=== PATIENT | male | born 1935 | race Caucasian/White ===

== ENCOUNTER 2018-10-09 11:03 | Inpatient (IN) | payer MEDICARE, MEDICAID ==
--- NOTE | 2018-10-09 11:10 | EDM.PDOC ---
ED HPI GENERAL MEDICAL PROBLEM - General Chief Complaint: General Stated Complaint: hypoxia,fever Time Seen by Provider: 10/09/18 11:09 Source of Information: Reports: RN - History of Present Illness INITIAL COMMENTS - FREE TEXT/NARRATIVE: Patient is a 83-year-old gentleman who was sent to the ER from [facility] for evaluation of progressive shortness of breath for the last day cough and fever tachypneic and hypoxia this time we will evaluate him and treat Onset: Gradual Duration: Day(s):, Getting Worse Location: Reports: Chest Severity: Moderate Improves with: Reports: None Worsens with: Reports: Movement Associated Symptoms: Reports: Cough, Fever/Chills, Shortness of Breath, Weakness - Related Data Allergies Allergy/AdvReac Type Severity Reaction Status Date / Time No Known Allergies Allergy Verified 10/09/18 11:05 Home Meds: Home Meds Acetaminophen 1,000 mg PO BID 10/09/18 [History] Acetaminophen 1,000 mg PO Q6HR PRN 10/09/18 [History] Acetaminophen 500 mg PO Q6HR PRN 10/09/18 [History] Bisacodyl 10 mg PO DAILY PRN 10/09/18 [History] Bisacodyl [Dulcolax] 10 mg RC DAILY PRN 10/09/18 [History] Cholecalciferol (Vitamin D3) [Vitamin D3] 1,000 unit PO DAILY 10/09/18 [History] Cinnamon Bark [Cinnamon] 1,000 mg PO DAILY 10/09/18 [History] Clindamycin Phosphate 1 applic TP BID PRN 10/09/18 [History] Diclofenac Sodium [Voltaren 1%] 4 gm TOP TID PRN 10/09/18 [History] Fish Oil/Borage/Flax/Om3,6,9#1 [[place] 3-6-9 1,200 mg Softgel] 1,200 mg PO DAILY 10/09/18 [History] Glycopyrrolate [Robinul] 1 mg PO TID 10/09/18 [History] Hydrocortisone [Hydrocortisone 2.5% Crm] 1 applic TOP DAILY PRN 10/09/18 [ History] Mirtazapine [Remeron] 15 mg PO BEDTIME 10/09/18 [History] Na Phos,M-B/Na Phos,Di-Ba [Fleet Enema] 133 ml RC ASDIRECTED PRN 10/09/18 [ History] Sennosides/Docusate Sodium [Senna-S] 2 tab PO BID 10/09/18 [History] Tamsulosin HCl [Flomax] 0.4 mg PO BEDTIME 10/09/18 [History] guaiFENesin/Dextromethorphan [Guaifenesin Dm Syrup] 10 ml PO Q4HR PRN 10/09/18 [ History] ED ROS GENERAL - Review of Systems Review Of Systems: See Below Constitutional: Reports: Fever, Weakness HEENT: Reports: No Symptoms Respiratory: Reports: Shortness of Breath, Cough Cardiovascular: Reports: No Symptoms Endocrine: Reports: No Symptoms GI/Abdominal: Reports: No Symptoms : Reports: No Symptoms Musculoskeletal: Reports: No Symptoms Skin: Reports: No Symptoms Neurological: Reports: No Symptoms Psychiatric: Reports: No Symptoms Hematologic/Lymphatic: Reports: No Symptoms ED EXAM, GENERAL - Physical Exam Exam: See Below Exam Limited By: Altered Mental Status General Appearance: Lethargic, Mild Distress Ears: Normal External Exam, Normal Canal, Hearing Grossly Normal, Normal TMs Ear Exam: Bilateral Ear: Auricle Normal, Canal Normal, TM normal Nose: Normal Inspection, Normal Mucosa, No Blood Throat/Mouth: Normal Inspection, Normal Lips, Normal Teeth, Normal Gums, Normal Oropharynx, Normal Voice, No Airway Compromise Head: Atraumatic, Normocephalic Neck: Normal Inspection, Supple, Non-Tender, Full Range of Motion Respiratory/Chest: Respiratory Distress, Decreased Breath Sounds, Rales, Wheezing Cardiovascular: Regular Rate, Rhythm GI/Abdominal: Normal Bowel Sounds, Soft, Non-Tender, No Organomegaly, No Distention, No Abnormal Bruit, No Mass (Male) Exam: Deferred Rectal (Males) Exam: Deferred Back Exam: Decreased Range of Motion Extremities: Normal Inspection. No: Pedal Edema Neurological: CN II-XII Intact, Normal Reflexes, Confused Skin Exam: Warm, Dry, Intact, Normal Color, No Rash Lymphatic: No Adenopathy Course - Vital Signs Last Recorded V/S: Last Vital Signs Temp 98.0 F 10/10/18 08:00 Pulse 67 10/10/18 08:00 Resp 18 10/10/18 08:00 BP 86/51 L 10/10/18 08:00 Pulse Ox 100 10/10/18 08:00 - Orders/Labs/Meds Orders: Active Orders 24 hr Category Date Time Status Cardiac Monitoring [RC] . DIRECTED Care 10/09/18 11:17 Inactive EKG Documentation Completion [RC] ASDIRECTED Care 10/09/18 11:18 Active Pulse Oximetry [RC] .PRN Care 10/09/18 11:06 Active Chest 1V Frontal [CR] Stat Exams 10/09/18 11:06 Taken CULTURE BLOOD [BC] Stat Lab 10/09/18 11:10 Received CULTURE BLOOD [BC] Stat Lab 10/09/18 11:45 Received Sodium Chloride 0.9% [Saline Flush] Med 10/09/18 11:07 Active 10 ml FLUSH ASDIRECTED PRN Blood Culture x2 Reflex Set [OM.PC] Stat Oth 10/09/18 11:16 Ordered Saline Lock Insert [OM.PC] Stat Oth 10/09/18 11:07 Ordered Medication Orders Acetaminophen (Tylenol Extra Strength) 500 mg PO Q6HR PRN PRN Reason: pain Last Admin: 10/09/18 15:35 Dose: 500 mg Albuterol/Ipratropium (Duoneb 3.0-0.5 Mg/3 Ml) 3 ml NEB Q4H PRN PRN Reason: Dyspnea Last Admin: 10/10/18 08:08 Dose: 3 ml Bisacodyl (Dulcolax) 10 mg PO DAILY PRN PRN Reason: Constipation Bisacodyl (Dulcolax) 10 mg RECTAL DAILY PRN PRN Reason: Constipation Hydrocortisone (Proctozone-Hc 2.5% Crm) 0 gm TOP DAILY PRN PRN Reason: ITCHING Levofloxacin/Dextrose 500 mg/ (Premix) 100 mls @ 100 mls/hr IV Q24H [facility] Last Admin: 10/09/18 13:57 Dose: 100 mls/hr Piperacillin Sod/Tazobactam (Sod 3.375 gm/ Sodium Chloride) 100 mls @ 200 mls/ hr IV Q6H [facility] Last Admin: 10/10/18 06:04 Dose: 200 mls/hr Admin: 10/10/18 01:05 Dose: 200 mls/hr Admin: 10/09/18 18:19 Dose: 200 mls/hr Admin: 10/09/18 13:20 Dose: 200 mls/hr Ibuprofen (Motrin) 800 mg PO Q6H PRN PRN Reason: Fever Last Admin: 10/09/18 18:19 Dose: 800 mg Mirtazapine (Remeron) 15 mg PO BEDTIME [facility] Last Admin: 10/09/18 19:19 Dose: 15 mg Senna/Docusate Sodium (Senna Plus) 2 tab PO BID B[facility] Last Admin: 10/10/18 08:27 Dose: Admin: 10/09/18 18:19 Dose: 2 tab Sodium Chloride (Saline Flush) 10 ml FLUSH ASDIRECTED PRN PRN Reason: Keep Vein Open Last Admin: 10/10/18 06:07 Dose: 10 ml Admin: 10/10/18 06:05 Dose: 10 ml Admin: 10/10/18 01:08 Dose: 10 ml Admin: 10/10/18 01:05 Dose: 10 ml Admin: 10/09/18 18:19 Dose: 10 ml Admin: 10/09/18 13:57 Dose: 10 ml Admin: 10/09/18 13:20 Dose: 10 ml Tamsulosin HCl (Flomax) 0.4 mg PO BEDTIME [facility] Last Admin: 10/09/18 19:18 Dose: 0.4 mg Labs: Laboratory Tests 10/09/18 10/09/18 10/09/18 Range/Units 11:10 11:10 11:10 WBC 24.8 H (4.0-10.2) K/uL RBC 3.88 L (4.33-5.41) M/uL Hgb 12.6 L (13.1-16.8) g/dL Hct 36.7 L (39.0-49.0) % MCV 94.6 (84.0-98.0) fL MCH 32.5 (28.2-33.3) pg MCHC 34.3 (31.7-36.0) g/dL RDW 13.0 (11.2-14.1) % Plt Count 201 (150-350) K/uL Neut % (Auto) 93.4 H (45.0-80.0) % Lymph % (Auto) 2.2 L (10.0-50.0) % [place] % (Auto) 4.3 (2.0-14.0) % Eos % (Auto) 0.0 (0.0-5.0) % Baso % (Auto) 0.1 (0.0-2.0) % Neut # (Auto) 23.21 H (1.40-7.00) K/uL Lymph # (Auto) 0.54 (0.50-3.50) K/uL [place] # (Auto) 1.07 H (0.00-1.00) K/uL Eos # (Auto) 0.00 (0.00-0.50) K/uL Baso # (Auto) 0.02 (0.00-0.20) K/uL ABG pH (7.35-7.45) ABG pCO2 (35-45) mmHG ABG pO2 (80-105) mmHG ABG HCO3 (22-26) mmol/L ABG Total CO2 (23-27) mmol/L ABG O2 Saturation (95-98) % ABG Base Excess (-2-3) mmol/L O2 Delivery Device Sodium 140 (136-145) mmol/L Potassium 3.8 (3.5-5.1) mmol/L Chloride 102 (98-107) mmol/L Carbon Dioxide 28.6 (21.0-32.0) mmol/L BUN 19 H (7-18) mg/dL Creatinine 1.02 (0.51-1.17) mg/dL Est Cr Clr Drug Dosing 53.10 mL/min Estimated GFR (MDRD) > 60 mL/min Glucose 169 H (74-106) mg/dL Lactic Acid 1.8 (0.4-2.0) mmol/L Calcium 9.0 (8.5-10.1) mg/dL Total Bilirubin 1.5 H (0.2-1.0) mg/dL AST 14 L (15-37) U/L ALT 16 (12-78) U/L Alkaline Phosphatase 88 (46-116) IU/L Troponin I 0.004 (0.000-0.056) ng/mL NT-Pro-B Natriuret Pep 1221 H (0-125) pg/mL Total Protein 7.2 (6.4-8.2) g/dL Albumin 3.3 L (3.4-5.0) g/dL 10/09/18 Range/Units 11:40 WBC (4.0-10.2) K/uL RBC (4.33-5.41) M/uL Hgb (13.1-16.8) g/dL Hct (39.0-49.0) % MCV (84.0-98.0) fL MCH (28.2-33.3) pg MCHC (31.7-36.0) g/dL RDW (11.2-14.1) % Plt Count (150-350) K/uL Neut % (Auto) (45.0-80.0) % Lymph % (Auto) (10.0-50.0) % [place] % (Auto) (2.0-14.0) % Eos % (Auto) (0.0-5.0) % Baso % (Auto) (0.0-2.0) % Neut # (Auto) (1.40-7.00) K/uL Lymph # (Auto) (0.50-3.50) K/uL [place] # (Auto) (0.00-1.00) K/uL Eos # (Auto) (0.00-0.50) K/uL Baso # (Auto) (0.00-0.20) K/uL ABG pH 7.44 (7.35-7.45) ABG pCO2 41 (35-45) mmHG ABG pO2 103 (80-105) mmHG ABG HCO3 28.1 H (22-26) mmol/L ABG Total CO2 29 H (23-27) mmol/L ABG O2 Saturation 98 (95-98) % ABG Base Excess 4 H (-2-3) mmol/L O2 Delivery Device Nasal cannula Sodium (136-145) mmol/L Potassium (3.5-5.1) mmol/L Chloride (98-107) mmol/L Carbon Dioxide (21.0-32.0) mmol/L BUN (7-18) mg/dL Creatinine (0.51-1.17) mg/dL Est Cr Clr Drug Dosing mL/min Estimated GFR (MDRD) mL/min Glucose (74-106) mg/dL Lactic Acid (0.4-2.0) mmol/L Calcium (8.5-10.1) mg/dL Total Bilirubin (0.2-1.0) mg/dL AST (15-37) U/L ALT (12-78) U/L Alkaline Phosphatase (46-116) IU/L Troponin I (0.000-0.056) ng/mL NT-Pro-B Natriuret Pep (0-125) pg/mL Total Protein (6.4-8.2) g/dL Albumin (3.4-5.0) g/dL Meds: Medications Generic Name Dose Route Start Last Admin Trade Name Freq PRN Reason Stop Dose Admin Acetaminophen 500 mg 10/09/18 12:36 10/09/18 15:35 Tylenol Extra Strength PO 500 mg Q6HR PRN Administration pain Albuterol/Ipratropium 3 ml 10/09/18 12:26 10/10/18 08:08 Duoneb 3.0-0.5 Mg/3 Ml NEB 3 ml Q4H PRN Administration Dyspnea Bisacodyl 10 mg 10/09/18 12:36 Dulcolax PO DAILY PRN Constipation Bisacodyl 10 mg 10/09/18 12:36 Dulcolax RECTAL DAILY PRN Constipation Hydrocortisone 0 gm 10/09/18 13:00 Proctozone-Hc 2.5% Crm TOP DAILY PRN ITCHING Levofloxacin/Dextrose 500 mg/ 100 mls @ 100 mls/hr 10/09/18 14:00 10/09/18 13 :57 Premix IV 100 mls/hr Q24H [facility] Administration Piperacillin Sod/Tazobactam 100 mls @ 200 mls/hr 10/09/18 13:00 10/10/18 06: 04 Sod 3.375 gm/ Sodium Chloride IV 200 mls/hr Q6H [facility] Administration Ibuprofen 800 mg 10/09/18 17:30 10/09/18 18:19 Motrin PO 800 mg Q6H PRN Administration Fever Mirtazapine 15 mg 10/09/18 20:00 10/09/18 19:19 Remeron PO 15 mg BEDTIME [facility] Administration Senna/Docusate Sodium 2 tab 10/09/18 18:00 10/10/18 08:27 Senna Plus PO Not Given BID B[facility] Sodium Chloride 10 ml 10/09/18 11:07 10/10/18 06:07 Saline Flush FLUSH 10 ml ASDIRECTED PRN Administration Keep Vein Open Tamsulosin HCl 0.4 mg 10/09/18 20:00 10/09/18 19:18 Flomax PO 0.4 mg BEDTIME [facility] Administration Discontinued Medications Generic Name Dose Route Start Last Admin Trade Name Freq PRN Reason Stop Dose Admin Furosemide 40 mg 10/09/18 12:33 10/09/18 13:20 Lasix IVPUSH 10/09/18 12:34 40 mg DAILY ONE Administration Non-Formulary Medication 1 applic 10/09/18 12:36 Clindamycin Phosphate [Clindamycin Phosphate] TP BID PRN Rash Non-Formulary Medication 4 gm 10/09/18 12:36 Diclofenac Sodium [Voltaren 1% Gel] TOP TID PRN Pain Non-Formulary Medication 1,200 mg 10/10/18 08:00 Fish Oil/Borage/Flax/Om3,6,9#1 [[place] 3-6-9 1,200 Mg Softgel] PO DAILY [facility] Non-Formulary Medication 1 mg 10/09/18 18:00 Glycopyrrolate [Robinul] PO TID [facility] Non-Formulary Medication 133 ml 10/09/18 12:36 Na Phos,M-B/Na Phos,Di-Ba [Fleet Enema] RC ASDIRECTED PRN Other Departure - Departure Time of Disposition: 11:53 Disposition: Admitted As Inpatient 68 Condition: Poor Clinical Impression: Pneumonia - Discharge Information - Problem List & Annotations (1) Pneumonia SNOMED Code(s): 167855938 Code(s): J18.9 - PNEUMONIA, UNSPECIFIED ORGANISM Status: Acute Current Visit: Yes Qualifiers: Pneumonia type: due to unspecified organism Laterality: bilateral Lung location: lower lobe of lung Qualified Code(s): J18.1 - Lobar pneumonia, unspecified organism (2) Comfort measures only status SNOMED Code(s): 58001157990972 Code(s): Z51.5 - ENCOUNTER FOR PALLIATIVE CARE Status: Acute Current Visit: Yes (3) Fever and chills SNOMED Code(s): 896785623 Code(s): R50.9 - FEVER, UNSPECIFIED Status: Acute Current Visit: Yes (4) Shortness of breath SNOMED Code(s): 930536444 Code(s): R06.02 - SHORTNESS OF BREATH Status: Acute Current Visit: Yes - Problem List Review Problem List Initiated/Reviewed/Updated: Yes - My Orders Last 24 Hours: My Active Orders 10/09/18 11:06 Pulse Oximetry [RC] .PRN Chest 1V Frontal [CR] Stat 10/09/18 11:07 Sodium Chloride 0.9% [Saline Flush] 10 ml FLUSH ASDIRECTED PRN Saline Lock Insert [OM.PC] Stat 10/09/18 11:10 CULTURE BLOOD [BC] Stat 10/09/18 11:16 Blood Culture x2 Reflex Set [OM.PC] Stat 10/09/18 11:17 Cardiac Monitoring [RC] . DIRECTED 10/09/18 11:18 EKG Documentation Completion [RC] ASDIRECTED 10/09/18 11:45 CULTURE BLOOD [BC] Stat - Assessment/Plan Last 24 Hours: My Active Orders 10/09/18 11:06 Pulse Oximetry [RC] .PRN Chest 1V Frontal [CR] Stat 10/09/18 11:07 Sodium Chloride 0.9% [Saline Flush] 10 ml FLUSH ASDIRECTED PRN Saline Lock Insert [OM.PC] Stat 10/09/18 11:10 CULTURE BLOOD [BC] Stat 10/09/18 11:16 Blood Culture x2 Reflex Set [OM.PC] Stat 10/09/18 11:17 Cardiac Monitoring [RC] . DIRECTED 10/09/18 11:18 EKG Documentation Completion [RC] ASDIRECTED 10/09/18 11:45 CULTURE BLOOD [BC] Stat Plan: Patient is comfort care status. Will be started on antibiotics. This was discussed with daughter and she agreed. Later in the day, patients daughter came in and spoke with Dr. Julien about patients care. Patients daughter reconsidered status. Wished patient to be DNR/ DNI , but will continue antibiotic treatment for 2-3 days. If no improvement, antibiotic treatment will be discontinued.
[2018-10-09 11:36] LABS: CHLORIDE,CL 102 mmol/L (98-107); SODIUM,NA 140 mmol/L (136-145)
[2018-10-09 11:47] LABS: BASE EXCESS ARTERIAL 4 mmol/L (-2-3); BICARBONATE,ARTERIAL 28.1 mmol/L (22-26); O2 DELIVERY DEVICE NASAL CANNULA; O2 SATURATION ARTERIAL 98 % (95-98); PCO2 ARTERIAL 41 mmHG (35-45); PO2 ARTERIAL 103 mmHG (80-105)
[2018-10-09] MEDS ORDERED: Albuterol/Ipratropium 3.0-0.5 MG/3 ML Neb Soln NEB PRN (12:26)
[2018-10-09] MEDS ORDERED: Furosemide 40 MG/4 ML VIAL IVPUSH ONE (12:33)
[2018-10-09] MEDS ORDERED: Acetaminophen 500 MG Tab PO PRN (12:36)
[2018-10-09] MEDS ORDERED: NA PHOS DI BA RC PRN (12:36)
[2018-10-09] MEDS ORDERED: CLINDAMYCIN PHOSPHATE TP PRN (12:36)
[2018-10-09] MEDS ORDERED: Bisacodyl 10 MG Supp RECTAL PRN (12:36)
[2018-10-09] MEDS ORDERED: DICLOFENAC SODIUM TOP PRN (12:36)
[2018-10-09] MEDS ORDERED: Bisacodyl 5 MG Tab PO PRN (12:36)
[2018-10-09] MEDS ORDERED: NA PHOS M B RC PRN (12:36)
[2018-10-09] MEDS ORDERED: Hydrocortisone 2.5% Crm 30 GM Tube TOP PRN (13:00)
[2018-10-09] MEDS: Sodium Chloride 0.9% 10 ML Syringe FLUSH PRN ×3 (13:20→18:19)
[2018-10-09] MEDS: Piperacillin/Tazobactam 3.375 GM in Sodium Chloride 0.9% 100 ML IV SCH ×2 (13:20→18:19)
[2018-10-09] MEDS: Levofloxacin/Dextrose 5%-Water 500 MG in Premix Bag 1 BAG IV SCH (13:57)
[2018-10-09] MEDS ORDERED: Ibuprofen 400 MG Tab PO PRN ×2 (17:30)
[2018-10-09] MEDS ORDERED: GLYCOPYRROLATE 1 MG PO SCH (18:00)
[2018-10-09] MEDS: Tamsulosin 0.4 MG Cap.ER PO SCH (19:18)
[2018-10-09] MEDS: Mirtazapine 15 MG Tab PO SCH (19:19)
[2018-10-10] MEDS: Sodium Chloride 0.9% 10 ML Syringe FLUSH PRN ×6 (01:05→14:22)
[2018-10-10] MEDS: Piperacillin/Tazobactam 3.375 GM in Sodium Chloride 0.9% 100 ML IV SCH ×4 (01:05→22:05)
[2018-10-10] MEDS ORDERED: [UNRECOGNIZED DRUG - OTHER] PO SCH (08:00)
[2018-10-10] MEDS ORDERED: FLAX PO SCH (08:00)
[2018-10-10] MEDS ORDERED: FISH OIL PO SCH (08:00)
[2018-10-10] MEDS ORDERED: BORAGE PO SCH (08:00)
--- NOTE | 2018-10-10 11:11 | PCM.PN ---
- General Info Date of Service: 10/10/18 - Review of Systems General: Reports: Fever (improving ), Other (difficulty speaking and swallowing but this is baseline for patient ) HEENT: Reports: No Symptoms Pulmonary: Reports: Shortness of Breath Cardiovascular: Reports: No Symptoms Gastrointestinal: Reports: Difficulty Swallowing (baseline ) Genitourinary: Reports: No Symptoms Musculoskeletal: Reports: No Symptoms Skin: Reports: No Symptoms Neurological: Reports: No Symptoms Psychiatric: Reports: No Symptoms - Patient Data Vitals - Most Recent: Last Vital Signs Temp 98.0 F 10/10/18 08:00 Pulse 67 10/10/18 08:00 Resp 18 10/10/18 08:00 BP 86/51 L 10/10/18 08:00 Pulse Ox 100 10/10/18 08:00 Weight - Most Recent: 180 lb 0.013 oz I&O - Last 24 Hours: Intake & Output 10/09/18 10/10/18 10/10/18 22:59 06:59 14:59 Intake Total 200 350 Output Total 2100 100 Balance -1900 250 Lab Results Last 24 Hours: Laboratory Results - last 24 hr 10/09/18 10/09/18 10/09/18 Range/Units 11:10 11:10 11:10 WBC 24.8 H (4.0-10.2) K/uL RBC 3.88 L (4.33-5.41) M/uL Hgb 12.6 L (13.1-16.8) g/dL Hct 36.7 L (39.0-49.0) % MCV 94.6 (84.0-98.0) fL MCH 32.5 (28.2-33.3) pg MCHC 34.3 (31.7-36.0) g/dL RDW 13.0 (11.2-14.1) % Plt Count 201 (150-350) K/uL MPV (7.00-11.50) fL Neut % (Auto) 93.4 H (45.0-80.0) % Lymph % (Auto) 2.2 L (10.0-50.0) % [place] % (Auto) 4.3 (2.0-14.0) % Eos % (Auto) 0.0 (0.0-5.0) % Baso % (Auto) 0.1 (0.0-2.0) % Neut # (Auto) 23.21 H (1.40-7.00) K/uL Lymph # (Auto) 0.54 (0.50-3.50) K/uL [place] # (Auto) 1.07 H (0.00-1.00) K/uL Eos # (Auto) 0.00 (0.00-0.50) K/uL Baso # (Auto) 0.02 (0.00-0.20) K/uL ABG pH (7.35-7.45) ABG pCO2 (35-45) mmHG ABG pO2 (80-105) mmHG ABG HCO3 (22-26) mmol/L ABG Total CO2 (23-27) mmol/L ABG O2 Saturation (95-98) % ABG Base Excess (-2-3) mmol/L O2 Delivery Device Sodium 140 (136-145) mmol/L Potassium 3.8 (3.5-5.1) mmol/L Chloride 102 (98-107) mmol/L Carbon Dioxide 28.6 (21.0-32.0) mmol/L BUN 19 H (7-18) mg/dL Creatinine 1.02 (0.51-1.17) mg/dL Est Cr Clr Drug Dosing 53.10 mL/min Estimated GFR (MDRD) > 60 mL/min Glucose 169 H (74-106) mg/dL Lactic Acid 1.8 (0.4-2.0) mmol/L Calcium 9.0 (8.5-10.1) mg/dL Total Bilirubin 1.5 H (0.2-1.0) mg/dL AST 14 L (15-37) U/L ALT 16 (12-78) U/L Alkaline Phosphatase 88 (46-116) IU/L Troponin I 0.004 (0.000-0.056) ng/mL NT-Pro-B Natriuret Pep 1221 H (0-125) pg/mL Total Protein 7.2 (6.4-8.2) g/dL Albumin 3.3 L (3.4-5.0) g/dL 10/09/18 10/10/18 10/10/18 Range/Units 11:40 06:33 06:33 WBC 20.0 H (4.0-10.2) K/uL RBC 3.64 L (4.33-5.41) M/uL Hgb 11.7 L (13.1-16.8) g/dL Hct 34.3 L (39.0-49.0) % MCV 94.2 (84.0-98.0) fL MCH 32.1 (28.2-33.3) pg MCHC 34.1 (31.7-36.0) g/dL RDW 12.9 (11.2-14.1) % Plt Count 195 (150-350) K/uL MPV 9.90 (7.00-11.50) fL Neut % (Auto) (45.0-80.0) % Lymph % (Auto) (10.0-50.0) % [place] % (Auto) (2.0-14.0) % Eos % (Auto) (0.0-5.0) % Baso % (Auto) (0.0-2.0) % Neut # (Auto) (1.40-7.00) K/uL Lymph # (Auto) (0.50-3.50) K/uL [place] # (Auto) (0.00-1.00) K/uL Eos # (Auto) (0.00-0.50) K/uL Baso # (Auto) (0.00-0.20) K/uL ABG pH 7.44 (7.35-7.45) ABG pCO2 41 (35-45) mmHG ABG pO2 103 (80-105) mmHG ABG HCO3 28.1 H (22-26) mmol/L ABG Total CO2 29 H (23-27) mmol/L ABG O2 Saturation 98 (95-98) % ABG Base Excess 4 H (-2-3) mmol/L O2 Delivery Device Nasal cannula Sodium 142 (136-145) mmol/L Potassium 3.5 (3.5-5.1) mmol/L Chloride 103 (98-107) mmol/L Carbon Dioxide 28.9 (21.0-32.0) mmol/L BUN 33 H (7-18) mg/dL Creatinine 1.54 H (0.51-1.17) mg/dL Est Cr Clr Drug Dosing 35.17 mL/min Estimated GFR (MDRD) 44 mL/min Glucose 119 H (74-106) mg/dL Lactic Acid (0.4-2.0) mmol/L Calcium 8.8 (8.5-10.1) mg/dL Total Bilirubin (0.2-1.0) mg/dL AST (15-37) U/L ALT (12-78) U/L Alkaline Phosphatase (46-116) IU/L Troponin I (0.000-0.056) ng/mL NT-Pro-B Natriuret Pep (0-125) pg/mL Total Protein (6.4-8.2) g/dL Albumin (3.4-5.0) g/dL Med Orders - Current: Current Medications Acetaminophen (Tylenol Extra Strength) 500 mg PO Q6HR PRN PRN Reason: pain Last Admin: 10/09/18 15:35 Dose: 500 mg Albuterol/Ipratropium (Duoneb 3.0-0.5 Mg/3 Ml) 3 ml NEB Q4H PRN PRN Reason: Dyspnea Last Admin: 10/10/18 08:08 Dose: 3 ml Bisacodyl (Dulcolax) 10 mg PO DAILY PRN PRN Reason: Constipation Bisacodyl (Dulcolax) 10 mg RECTAL DAILY PRN PRN Reason: Constipation Hydrocortisone (Proctozone-Hc 2.5% Crm) 0 gm TOP DAILY PRN PRN Reason: ITCHING Levofloxacin/Dextrose 500 mg/ (Premix) 100 mls @ 100 mls/hr IV Q24H [facility] Last Admin: 10/09/18 13:57 Dose: 100 mls/hr Piperacillin Sod/Tazobactam (Sod 3.375 gm/ Sodium Chloride) 100 mls @ 200 mls/ hr IV Q6H [facility] Last Admin: 10/10/18 06:04 Dose: 200 mls/hr Ibuprofen (Motrin) 800 mg PO Q6H PRN PRN Reason: Fever Last Admin: 10/09/18 18:19 Dose: 800 mg Mirtazapine (Remeron) 15 mg PO BEDTIME [facility] Last Admin: 10/09/18 19:19 Dose: 15 mg Senna/Docusate Sodium (Senna Plus) 2 tab PO BID [facility] Last Admin: 10/10/18 08:27 Dose: Not Given Sodium Chloride (Saline Flush) 10 ml FLUSH ASDIRECTED PRN PRN Reason: Keep Vein Open Last Admin: 10/10/18 06:07 Dose: 10 ml Tamsulosin HCl (Flomax) 0.4 mg PO BEDTIME [facility] Last Admin: 10/09/18 19:18 Dose: 0.4 mg Discontinued Medications Furosemide (Lasix) 40 mg IVPUSH DAILY ONE Stop: 10/09/18 12:34 Last Admin: 10/09/18 13:20 Dose: 40 mg Non-Formulary Medication (Clindamycin Phosphate [Clindamycin Phosphate]) 1 applic TP BID PRN PRN Reason: Rash Non-Formulary Medication (Diclofenac Sodium [Voltaren 1% Gel]) 4 gm TOP TID PRN PRN Reason: Pain Non-Formulary Medication (Fish Oil/Borage/Flax/Om3,6,9#1 [[place] 3-6-9 1,200 Mg Softgel]) 1,200 mg PO DAILY [facility] Non-Formulary Medication (Glycopyrrolate [Robinul]) 1 mg PO TID [facility] Non-Formulary Medication (Na Phos,M-B/Na Phos,Di-Ba [Fleet Enema]) 133 ml RC ASDIRECTED PRN PRN Reason: Other - Exam Quality Assessment: Supplemental Oxygen General: Alert, Cooperative HEENT: Pupils Equal, Pupils Reactive, EOMI, Mucous Membr. Moist/[place] Neck: Supple Lungs: Decreased Breath Sounds, Rales (right side ) Cardiovascular: Regular Rate, Regular Rhythm GI/Abdominal Exam: Normal Bowel Sounds, Soft, Non-Tender, No Organomegaly, No Distention, No Abnormal Bruit, No Mass, Pelvis Stable (Male) Exam: Deferred Extremities: Normal Inspection, Normal Range of Motion, Non-Tender, No Pedal Edema, Normal Capillary Refill Skin: Warm, Dry, Intact Neurological: No New Focal Deficit Psy/Mental Status: Alert, Normal Affect, Normal Mood - Problem List & Annotations (1) Pneumonia SNOMED Code(s): 466190781 Code(s): J18.9 - PNEUMONIA, UNSPECIFIED ORGANISM Status: Acute Current Visit: Yes Qualifiers: Pneumonia type: due to unspecified organism Laterality: bilateral Lung location: lower lobe of lung Qualified Code(s): J18.1 - Lobar pneumonia, unspecified organism (2) Comfort measures only status SNOMED Code(s): 24850098981436 Code(s): Z51.5 - ENCOUNTER FOR PALLIATIVE CARE Status: Acute Current Visit: Yes (3) Fever and chills SNOMED Code(s): 609106387 Code(s): R50.9 - FEVER, UNSPECIFIED Status: Acute Current Visit: Yes (4) Shortness of breath SNOMED Code(s): 652886899 Code(s): R06.02 - SHORTNESS OF BREATH Status: Acute Current Visit: Yes - Problem List Review Problem List Initiated/Reviewed/Updated: Yes - My Orders Last 24 Hours: My Active Orders 10/09/18 11:06 Pulse Oximetry [RC] .PRN Chest 1V Frontal [CR] Stat 10/09/18 11:07 Sodium Chloride 0.9% [Saline Flush] 10 ml FLUSH ASDIRECTED PRN Saline Lock Insert [OM.PC] Stat 10/09/18 11:10 CULTURE BLOOD [BC] Stat 10/09/18 11:16 Blood Culture x2 Reflex Set [OM.PC] Stat 10/09/18 11:17 Cardiac Monitoring [RC] . DIRECTED 10/09/18 11:18 EKG Documentation Completion [RC] ASDIRECTED 10/09/18 11:45 CULTURE BLOOD [BC] Stat 10/09/18 12:21 Patient Status [ADT] Routine Oxygen Therapy [RC] 2300 VTE/DVT Education [RC] PER UNIT ROUTINE Vital Signs [RC] Q4HR Resuscitation Status Routine 10/09/18 12:26 Urinary Catheter Assessment [RC] 08,20 Albuterol/Ipratropium [DuoNeb 3.0-0.5 MG/3 ML] 3 ml NEB Q4H PRN 10/09/18 12:33 RT Aerosol Therapy [RC] .PRN 10/09/18 12:36 Acetaminophen [Tylenol Extra Strength] 500 mg PO Q6HR PRN Bisacodyl [Dulcolax] 10 mg PO DAILY PRN Bisacodyl [Dulcolax] 10 mg RECTAL DAILY PRN 10/09/18 13:00 Hydrocortisone [Proctozone-HC 2.5% Crm] 0 gm TOP DAILY PRN Piperacillin/Tazobactam [Zosyn] 3.375 gm Sodium Chloride 0.9% [Normal Saline] 100 ml IV Q6H 10/09/18 14:00 Levofloxacin/Dextrose 5%-Water [Levaquin in D5W 500 MG/100 ML] 500 mg Premix Bag 1 bag IV Q24H 10/09/18 17:30 Ibuprofen [Motrin] 800 mg PO Q6H PRN 10/09/18 18:00 Docusate Sodium/Sennosides [Senna Plus] 2 tab PO BID 10/09/18 20:00 Mirtazapine [Remeron] 15 mg PO BEDTIME Tamsulosin [Flomax] 0.4 mg PO BEDTIME 10/09/18 Dinner [employer] Diet [DIET] - Plan Plan:: Patient seems to be responding to antibiotic therapy looking better I will check a CBC and BMP and a chest x-ray today continue antibiotics for another 24 hours thank you
[2018-10-10] MEDS: Levofloxacin/Dextrose 5%-Water 500 MG in Premix Bag 1 BAG IV SCH (14:22)
[2018-10-10] MEDS: Mirtazapine 15 MG Tab PO SCH (22:05)
[2018-10-10] MEDS: Tamsulosin 0.4 MG Cap.ER PO SCH (22:05)
[2018-10-11] MEDS: Piperacillin/Tazobactam 3.375 GM in Sodium Chloride 0.9% 100 ML IV SCH ×4 (01:33→19:35)
[2018-10-11] MEDS: Sodium Chloride 0.9% 10 ML Syringe FLUSH PRN ×4 (01:33→19:35)
--- NOTE | 2018-10-11 11:45 | PCM.PN ---
- General Info Date of Service: 10/11/18 - Review of Systems General: Reports: No Symptoms HEENT: Reports: No Symptoms Pulmonary: Reports: Shortness of Breath, Cough Cardiovascular: Reports: No Symptoms Gastrointestinal: Reports: No Symptoms Genitourinary: Reports: No Symptoms Musculoskeletal: Reports: No Symptoms Skin: Reports: No Symptoms Neurological: Reports: Trouble Speaking, Other (The fascia and dysphagia) Psychiatric: Reports: No Symptoms - Patient Data Vitals - Most Recent: Last Vital Signs Temp 97.3 F 10/11/18 08:00 Pulse 52 L 10/11/18 08:00 Resp 17 10/11/18 08:00 BP 116/60 10/11/18 08:00 Pulse Ox 98 10/11/18 08:00 Weight - Most Recent: 140 lb I&O - Last 24 Hours: Intake & Output 10/10/18 10/11/18 10/11/18 22:59 06:59 14:59 Intake Total 940 200 350 Output Total 325 350 Balance 615 -150 350 Lab Results Last 24 Hours: Laboratory Results - last 24 hr 10/11/18 Range/Units 07:42 WBC 11.2 H (4.0-10.2) K/uL RBC 3.70 L (4.33-5.41) M/uL Hgb 11.9 L (13.1-16.8) g/dL Hct 35.3 L (39.0-49.0) % MCV 95.4 (84.0-98.0) fL MCH 32.2 (28.2-33.3) pg MCHC 33.7 (31.7-36.0) g/dL RDW 13.0 (11.2-14.1) % Plt Count 222 (150-350) K/uL Neut % (Auto) 83.9 H (45.0-80.0) % Lymph % (Auto) 10.1 (10.0-50.0) % [place] % (Auto) 5.0 (2.0-14.0) % Eos % (Auto) 0.8 (0.0-5.0) % Baso % (Auto) 0.2 (0.0-2.0) % Neut # (Auto) 9.41 H (1.40-7.00) K/uL Lymph # (Auto) 1.13 (0.50-3.50) K/uL [place] # (Auto) 0.56 (0.00-1.00) K/uL Eos # (Auto) 0.09 (0.00-0.50) K/uL Baso # (Auto) 0.02 (0.00-0.20) K/uL [place] Results Last 24 Hours: Microbiology 10/09/18 11:45 Aerobic Blood Culture - Preliminary Blood - Venous - Lab Draw NO GROWTH AFTER 1 DAY Anaerobic Blood Culture - Preliminary NO GROWTH AFTER 1 DAY 10/09/18 11:10 Aerobic Blood Culture - Preliminary Blood - Venous NO GROWTH AFTER 1 DAY Anaerobic Blood Culture - Preliminary NO GROWTH AFTER 1 DAY Med Orders - Current: Current Medications Acetaminophen (Tylenol Extra Strength) 500 mg PO Q6HR PRN PRN Reason: pain Last Admin: 10/09/18 15:35 Dose: 500 mg Albuterol/Ipratropium (Duoneb 3.0-0.5 Mg/3 Ml) 3 ml NEB Q4H PRN PRN Reason: Dyspnea Last Admin: 10/10/18 08:08 Dose: 3 ml Bisacodyl (Dulcolax) 10 mg PO DAILY PRN PRN Reason: Constipation Bisacodyl (Dulcolax) 10 mg RECTAL DAILY PRN PRN Reason: Constipation Hydrocortisone (Proctozone-Hc 2.5% Crm) 0 gm TOP DAILY PRN PRN Reason: ITCHING Levofloxacin/Dextrose 500 mg/ (Premix) 100 mls @ 100 mls/hr IV Q24H [facility] Last Admin: 10/10/18 14:22 Dose: 100 mls/hr Piperacillin Sod/Tazobactam (Sod 3.375 gm/ Sodium Chloride) 100 mls @ 200 mls/ hr IV Q6H [facility] Last Admin: 10/11/18 07:25 Dose: 200 mls/hr Ibuprofen (Motrin) 800 mg PO Q6H PRN PRN Reason: Fever Last Admin: 10/09/18 18:19 Dose: 800 mg Mirtazapine (Remeron) 15 mg PO BEDTIME [facility] Last Admin: 10/10/18 22:05 Dose: 15 mg Senna/Docusate Sodium (Senna Plus) 2 tab PO BID [facility] Last Admin: 10/11/18 07:23 Dose: 2 tab Sodium Chloride (Saline Flush) 10 ml FLUSH ASDIRECTED PRN PRN Reason: Keep Vein Open Last Admin: 10/11/18 01:33 Dose: 10 ml Tamsulosin HCl (Flomax) 0.4 mg PO BEDTIME [facility] Last Admin: 10/10/18 22:05 Dose: 0.4 mg Discontinued Medications Furosemide (Lasix) 40 mg IVPUSH DAILY ONE Stop: 10/09/18 12:34 Last Admin: 10/09/18 13:20 Dose: 40 mg Non-Formulary Medication (Clindamycin Phosphate [Clindamycin Phosphate]) 1 applic TP BID PRN PRN Reason: Rash Non-Formulary Medication (Diclofenac Sodium [Voltaren 1% Gel]) 4 gm TOP TID PRN PRN Reason: Pain Non-Formulary Medication (Fish Oil/Borage/Flax/Om3,6,9#1 [[place] 3-6-9 1,200 Mg Softgel]) 1,200 mg PO DAILY [facility] Non-Formulary Medication (Glycopyrrolate [Robinul]) 1 mg PO TID [facility] Non-Formulary Medication (Na Phos,M-B/Na Phos,Di-Ba [Fleet Enema]) 133 ml RC ASDIRECTED PRN PRN Reason: Other Comments:: Patient seems to be recovering from pulmonary insult appears more comfortable and less shortness of breath - Exam Quality Assessment: Supplemental Oxygen General: Alert, Oriented HEENT: Pupils Equal, Pupils Reactive, EOMI, Mucous Membr. Moist/[place] Neck: Supple Lungs: Decreased Breath Sounds, Rales Cardiovascular: Regular Rate, Regular Rhythm GI/Abdominal Exam: Normal Bowel Sounds, Soft, Non-Tender, No Organomegaly, No Distention, No Abnormal Bruit, No Mass, Pelvis Stable (Male) Exam: Other (Cardenas catheter in place) Back Exam: Normal Inspection, Full Range of Motion Extremities: Normal Inspection, Normal Range of Motion, Non-Tender, No Pedal Edema, Normal Capillary Refill - Problem List & Annotations (1) Pneumonia SNOMED Code(s): 333327446 Code(s): J18.9 - PNEUMONIA, UNSPECIFIED ORGANISM Status: Acute Current Visit: Yes Qualifiers: Pneumonia type: due to unspecified organism Laterality: bilateral Lung location: lower lobe of lung Qualified Code(s): J18.1 - Lobar pneumonia, unspecified organism Annotation/Comment:: Patient seems to be improving clinically (2) Comfort measures only status SNOMED Code(s): 30337565417349 Code(s): Z51.5 - ENCOUNTER FOR PALLIATIVE CARE Status: Acute Current Visit: Yes Annotation/Comment:: Patient will be sent to [facility] tomorrow on by mouth antibiotics and as discussed with daughter comfort care. (3) Fever and chills SNOMED Code(s): 104632340 Code(s): R50.9 - FEVER, UNSPECIFIED Status: Acute Current Visit: Yes (4) Shortness of breath SNOMED Code(s): 994807033 Code(s): R06.02 - SHORTNESS OF BREATH Status: Acute Current Visit: Yes - Problem List Review Problem List Initiated/Reviewed/Updated: Yes - My Orders Last 24 Hours: My Active Orders 10/11/18 05:11 Chest 1V Frontal [CR] Routine 10/11/18 10:39 Chest 1V Frontal [CR] Stat 10/12/18 05:11 CBC WITH AUTO DIFF [HEME] AM 10/13/18 05:11 CBC WITH AUTO DIFF [HEME] AM
[2018-10-11] MEDS: Levofloxacin/Dextrose 5%-Water 500 MG in Premix Bag 1 BAG IV SCH (14:04)
[2018-10-11] MEDS: Tamsulosin 0.4 MG Cap.ER PO SCH (19:35)
[2018-10-11] MEDS: Mirtazapine 15 MG Tab PO SCH (19:35)
[2018-10-12] MEDS: Piperacillin/Tazobactam 3.375 GM in Sodium Chloride 0.9% 100 ML IV SCH ×2 (00:28→08:32)
[2018-10-12] MEDS: Sodium Chloride 0.9% 10 ML Syringe FLUSH PRN ×2 (00:28→08:33)
--- NOTE | 2018-10-12 09:48 | PCM.DCSUM1 ---
Discharge Summary - Hospital Course Free Text/Narrative:: Alexandru is a 83-year-old gentleman with dysphagia and aphasia admitted to the hospital secondary to pneumonia at this time I discussed with daughter the seriousness of his illness and after a long discussion we agreed to admit him for antibiotic therapy at decided to make him a no code DO NOT INTUBATE and comfort care. During the course of the hospital patient received IV antibiotics and has improved clinically significantly that at this time his white count is down to 9.1 from 24,000 and will go ahead and discharge him on oral antibiotics to the shelter. Patient has a skilled bed. - Discharge Data Discharge Date: 10/12/18 Discharge Disposition: DC/Tfer to SNF 03 Condition: Good - Discharge Diagnosis/Problem(s) (1) Pneumonia SNOMED Code(s): 872605395 ICD Code: J18.9 - PNEUMONIA, UNSPECIFIED ORGANISM Status: Acute Current Visit: Yes Problem Details: Patient seems to be improving clinically; will send home on oral antibiotics Qualifiers: Pneumonia type: due to unspecified organism Laterality: bilateral Lung location: lower lobe of lung Qualified Code(s): J18.1 - Lobar pneumonia, unspecified organism (2) Comfort measures only status SNOMED Code(s): 19208935493567 ICD Code: Z51.5 - ENCOUNTER FOR PALLIATIVE CARE Status: Acute Current Visit: Yes Problem Details: Patient will be sent [facility] on by mouth antibiotics and as discussed with daughter comfort care. Discussed on phone today. She agreed to plan. (3) Fever and chills SNOMED Code(s): 318494682 ICD Code: R50.9 - FEVER, UNSPECIFIED Status: Resolved Current Visit: Yes (4) Shortness of breath SNOMED Code(s): 771886189 ICD Code: R06.02 - SHORTNESS OF BREATH Status: Acute Current Visit: Yes Problem Details: Improving - Patient Instructions Diet: Usual Diet as Tolerated Activity: As Tolerated - Discharge Plan *PRESCRIPTION DRUG MONITORING PROGRAM REVIEWED*: Not Applicable *COPY OF PRESCRIPTION DRUG MONITORING REPORT IN PATIENT REBECCA: Not Applicable Home Medications: Home Meds Acetaminophen 1,000 mg PO BID 10/09/18 [History] Acetaminophen 1,000 mg PO Q6HR PRN 10/09/18 [History] Acetaminophen 500 mg PO Q6HR PRN 10/09/18 [History] Bisacodyl 10 mg PO DAILY PRN 10/09/18 [History] Bisacodyl [Dulcolax] 10 mg RC DAILY PRN 10/09/18 [History] Cholecalciferol (Vitamin D3) [Vitamin D3] 1,000 unit PO DAILY 10/09/18 [History] Cinnamon Bark [Cinnamon] 1,000 mg PO DAILY 10/09/18 [History] Clindamycin Phosphate 1 applic TP BID PRN 10/09/18 [History] Diclofenac Sodium [Voltaren 1% Gel] 4 gm TOP TID PRN 10/09/18 [History] Fish Oil/Borage/Flax/Om3,6,9#1 [[place] 3-6-9 1,200 mg Softgel] 1,200 mg PO DAILY 10/09/18 [History] Glycopyrrolate [Robinul] 1 mg PO TID 10/09/18 [History] Hydrocortisone [Hydrocortisone 2.5% Crm] 1 applic TOP DAILY PRN 10/09/18 [ History] Mirtazapine [Remeron] 15 mg PO BEDTIME 10/09/18 [History] Na Phos,M-B/Na Phos,Di-Ba [Fleet Enema] 133 ml RC ASDIRECTED PRN 10/09/18 [ History] Sennosides/Docusate Sodium [Senna-S] 2 tab PO BID 10/09/18 [History] Tamsulosin HCl [Flomax] 0.4 mg PO BEDTIME 10/09/18 [History] guaiFENesin/Dextromethorphan [Guaifenesin Dm Syrup] 10 ml PO Q4HR PRN 10/09/18 [ History] Albuterol/Ipratropium [DuoNeb 3.0-0.5 MG/3 ML] 3 ml NEB Q4H PRN #1 box 10/12/18 [Rx] Amoxicillin/Potassium Clav [Augmentin 875-125 Tablet] 1 each PO BID #14 tablet 10/12/18 [Rx] levoFLOXacin [Levaquin] 750 mg PO DAILY #7 tab 10/12/18 [Rx] Oxygen Therapy Mode: Nasal Cannula Oxygen Flow Rate (L/min): 2 Maintain SpO2% greater than: 90 (O2 use PRN) Patient Handouts: Community-Acquired Pneumonia, Adult, [id number] Forms: ED Department Discharge Referrals: Med Salas MD [Primary Care Provider] - - Discharge Summary/Plan Comment DC Time >30 min.: No - General Info Date of Service: 10/12/18 - Review of Systems General: Reports: No Symptoms HEENT: Reports: No Symptoms Pulmonary: Reports: No Symptoms. Denies: Shortness of Breath Cardiovascular: Reports: No Symptoms Gastrointestinal: Reports: No Symptoms Genitourinary: Reports: No Symptoms Musculoskeletal: Reports: No Symptoms Skin: Reports: No Symptoms Neurological: Reports: No Symptoms Psychiatric: Reports: No Symptoms - Patient Data Vitals - Most Recent: Last Vital Signs Temp 97.4 F 10/12/18 07:53 Pulse 72 10/12/18 07:53 Resp 18 10/12/18 07:53 BP 107/49 L 10/12/18 07:53 Pulse Ox 96 10/12/18 07:53 Weight - Most Recent: 140 lb 12.8 oz I&O - Last 24 hours: Intake & Output 10/11/18 10/12/18 10/12/18 22:59 06:59 14:59 Intake Total 200 Output Total 300 Balance 200 -300 Lab Results - Last 24 hrs: Laboratory Results - last 24 hr 10/12/18 Range/Units 06:38 WBC 9.1 (4.0-10.2) K/uL RBC 3.47 L (4.33-5.41) M/uL Hgb 11.1 L (13.1-16.8) g/dL Hct 32.8 L (39.0-49.0) % MCV 94.5 (84.0-98.0) fL MCH 32.0 (28.2-33.3) pg MCHC 33.8 (31.7-36.0) g/dL RDW 12.8 (11.2-14.1) % Plt Count 247 (150-350) K/uL Neut % (Auto) 81.4 H (45.0-80.0) % Lymph % (Auto) 11.7 (10.0-50.0) % [place] % (Auto) 5.8 (2.0-14.0) % Eos % (Auto) 0.9 (0.0-5.0) % Baso % (Auto) 0.2 (0.0-2.0) % Neut # (Auto) 7.44 H (1.40-7.00) K/uL Lymph # (Auto) 1.07 (0.50-3.50) K/uL [place] # (Auto) 0.53 (0.00-1.00) K/uL Eos # (Auto) 0.08 (0.00-0.50) K/uL Baso # (Auto) 0.02 (0.00-0.20) K/uL EB Results - Last 24 hrs: Microbiology 10/09/18 11:45 Aerobic Blood Culture - Preliminary Blood - Venous - Lab Draw NO GROWTH AFTER 2 DAYS Anaerobic Blood Culture - Preliminary NO GROWTH AFTER 2 DAYS 10/09/18 11:10 Aerobic Blood Culture - Preliminary Blood - Venous NO GROWTH AFTER 2 DAYS Anaerobic Blood Culture - Preliminary NO GROWTH AFTER 2 DAYS Med Orders - Current: Current Medications Acetaminophen (Tylenol Extra Strength) 500 mg PO Q6HR PRN PRN Reason: pain Last Admin: 10/09/18 15:35 Dose: 500 mg Albuterol/Ipratropium (Duoneb 3.0-0.5 Mg/3 Ml) 3 ml NEB Q4H PRN PRN Reason: Dyspnea Last Admin: 10/10/18 08:08 Dose: 3 ml Bisacodyl (Dulcolax) 10 mg PO DAILY PRN PRN Reason: Constipation Bisacodyl (Dulcolax) 10 mg RECTAL DAILY PRN PRN Reason: Constipation Hydrocortisone (Proctozone-Hc 2.5% Crm) 0 gm TOP DAILY PRN PRN Reason: ITCHING Levofloxacin/Dextrose 500 mg/ (Premix) 100 mls @ 100 mls/hr IV Q24H [facility] Last Admin: 10/11/18 14:04 Dose: 100 mls/hr Piperacillin Sod/Tazobactam (Sod 3.375 gm/ Sodium Chloride) 100 mls @ 200 mls/ hr IV Q6H [facility] Last Admin: 10/12/18 08:32 Dose: 200 mls/hr Ibuprofen (Motrin) 800 mg PO Q6H PRN PRN Reason: Fever Last Admin: 10/09/18 18:19 Dose: 800 mg Mirtazapine (Remeron) 15 mg PO BEDTIME [facility] Last Admin: 10/11/18 19:35 Dose: 15 mg Senna/Docusate Sodium (Senna Plus) 2 tab PO BID COUNT INCLUDES [facility] Last Admin: 10/12/18 08:29 Dose: 2 tab Sodium Chloride (Saline Flush) 10 ml FLUSH ASDIRECTED PRN PRN Reason: Keep Vein Open Last Admin: 10/12/18 08:33 Dose: 10 ml Tamsulosin HCl (Flomax) 0.4 mg PO BEDTIME COUNT INCLUDES [facility] Last Admin: 10/11/18 19:35 Dose: 0.4 mg Discontinued Medications Furosemide (Lasix) 40 mg IVPUSH DAILY ONE Stop: 10/09/18 12:34 Last Admin: 10/09/18 13:20 Dose: 40 mg Non-Formulary Medication (Clindamycin Phosphate [Clindamycin Phosphate]) 1 applic TP BID PRN PRN Reason: Rash Non-Formulary Medication (Diclofenac Sodium [Voltaren 1% Gel]) 4 gm TOP TID PRN PRN Reason: Pain Non-Formulary Medication (Fish Oil/Borage/Flax/Om3,6,9#1 [[place] 3-6-9 1,200 Mg Softgel]) 1,200 mg PO DAILY COUNT INCLUDES THE [facility] Non-Formulary Medication (Glycopyrrolate [Robinul]) 1 mg PO TID COUNT INCLUDES THE [facility] Non-Formulary Medication (Na Phos,M-B/Na Phos,Di-Ba [Fleet Enema]) 133 ml RC ASDIRECTED PRN PRN Reason: Other - Exam General: Reports: Alert, Cooperative HEENT: Reports: Pupils Equal, Pupils Reactive, EOMI, Mucous Membr. Moist/[place] Neck: Reports: Supple Lungs: Reports: Clear to Auscultation, Normal Respiratory Effort Cardiovascular: Reports: Regular Rate, Regular Rhythm GI/Abdominal Exam: Normal Bowel Sounds, Soft, Non-Tender, No Organomegaly, No Distention, No Abnormal Bruit, No Mass, Pelvis Stable (Male) Exam: Deferred Rectal (Males) Exam: Deferred Extremities: Normal Inspection, Normal Range of Motion, Non-Tender, No Pedal Edema, Normal Capillary Refill Skin: Reports: Warm, Dry, Intact Neurological: Reports: No New Focal Deficit Psy/Mental Status: Reports: Normal Affect, Normal Mood
== END 2018-10-12 12:48 | DRG 195 ==
LOC: LL.ED 11:03 → UNDOADMIN 11:58 → LL.MS 11:58
PROVIDERS: ADMIT Family Medicine; ATTEND Family Medicine
DX: J18.1 Lobar pneumonia, unspecified organism (principal); Z51.5 Encounter for palliative care; Z66 Do not resuscitate
CPT/HCPCS: 36000; 36415; 71045; 80048; 80053; 82803; 83605; 83880; 84484; 85025; 85027; 87040; 93005; 94640; 99285-25; A4217; A9270-GY; J1940; J1956; J2543; J7050; J7620-GY